=== PATIENT | female | born 1950 | race Caucasian/White ===

== ENCOUNTER → 2018-05-18 | Outpatient (CLI) | payer MEDICARE, OTHER, MEDICAID | LOC: WI 11:17 | PROVIDERS: ATTEND Internal Medicine Geriatric Medicine | DX: Z12.31 Encounter for screening mammogram for malignant neoplasm of breast (principal) | CPT/HCPCS: 77063; 77067 ==

== ENCOUNTER → 2018-11-18 | Outpatient (CLI) | payer MEDICARE, OTHER, MEDICAID ==
--- NOTE | 2018-11-18 11:02 | RADIOLOGY REPORT (SQ) ---
EXAM DESCRIPTION: VENOUS UNILATERAL UPPER COMPLETED DATE/TIME: 11/18/2018 10:43 am REASON FOR STUDY: LUE SWELLING I80.9 PHLEBITIS AND THROMBOPHLEBITIS OF UNSPECIFIED SITE COMPARISON: None. TECHNIQUE: Dynamic and static coffey scale and color images acquired of the left arm venous system. Se lected spectral images acquired with additional compression and augmentation maneuvers. The contralat eral subclavian vein and internal jugular vein were also imaged. Images stored on PACS. LIMITATIONS: None. FINDINGS: INTERNAL JUGULAR VEIN: Normal phasicity, compression, augmentation. No visualized echogeni c material on coffey scale. No defects on color images. Comparison opposite side normal. SUBCLAVIAN VEIN: Normal compression, augmentation. No visualized echogenic material on coffey scale. No defects on color images. AXILLARY VEIN: Normal compression, augmentation. No visualized echogenic material on coffey scale. No d efects on color images. BRACHIAL VEIN: Normal compression, augmentation. No visualized echogenic material on coffey scale. No d efects on color images. BASILIC VEIN: Normal compression, augmentation. No visualized echogenic material on coffey scale. No de fects on color images. CEPHALIC VEIN: Normal compression, augmentation. No visualized echogenic material on coffey scale. No d efects on color images. OTHER: No other significant finding. IMPRESSION: NO EVIDENCE DVT OR SVT IN THE LEFT ARM. TECHNICAL DOCUMENTATION: JOB ID: [id number] [employer]- All Rights Reserved Reading location - IP/workstation name: [email or web address]
== END ==
LOC: RAD 09:51
PROVIDERS: ATTEND Internal Medicine Geriatric Medicine
DX: I80.9 Phlebitis and thrombophlebitis of unspecified site (principal)
CPT/HCPCS: 93971

== ENCOUNTER 2019-11-27 12:29 | Emergency (ER) | payer MEDICARE, OTHER, MEDICAID ==
--- NOTE | 2019-11-27 12:49 | ER Document Report ---
ED Medical Screen (RME) - General Chief Complaint: Leg Pain Stated Complaint: LEG PAIN Time Seen by Provider: 11/27/19 12:46 Primary Care Provider: WINSTON REDDY MD [Primary Care Provider] - Follow up as needed Notes: HPI: 69-year-old female with history of a bleeding varicosity on the right lower leg presenting with bleeding that began yesterday that she has not been able to get to stop. Does not history of high blood pressure. PHYSICAL EXAMINATION: Limited exam in triage, patient has a dressing over the right lower leg this was not unwrapped given her propensity for bleeding, she is bleeding through her dressing at this time. I have greeted and performed a rapid initial assessment of this patient. A comprehensive ED assessment and evaluation of the patient, analysis of test results and completion of medical decision making process will be conducted by an additional ED providers. TRAVEL OUTSIDE OF THE [place] IN LAST 30 DAYS: No - Related Data Allergies/Adverse Reactions: clams Allergy (Uncoded 11/27/19 12:43) Past Medical History Pulmonary Medical History: Reports: Hx Asthma, Hx COPD, Hx Pneumonia Musculoskeltal Medical History: Reports Hx Arthritis - Hips, shoulder, elbow, knees, right ankle Past Surgical History: Reports: Hx Hysterectomy, Hx Orthopedic Surgery - Right ankle, bilateral knees, elbows and shoulders - Immunizations Hx Diphtheria, Pertussis, Tetanus Vaccination: Yes Physical Exam - Vital signs Vitals: Temp Pulse Resp BP Pulse Ox 98.8 F 86 16 146/68 H 99 11/27/19 12:36 11/27/19 12:36 11/27/19 12:36 11/27/19 12:36 11/27/19 12:36 Course - Vital Signs Vital signs: Temp Pulse Resp BP Pulse Ox 98.8 F 86 16 146/68 H 99 11/27/19 12:36 11/27/19 12:36 11/27/19 12:36 11/27/19 12:36 11/27/19 12:36 Doctor's Discharge - Discharge Referrals: WINSTON REDDY MD [Primary Care Provider] - Follow up as needed
[2019-11-27 14:18] LABS: ABSOLUTE BASOPHILS # (AUTO) 0.1 10^3/uL (0.0-0.2); ABSOLUTE EOSINOPHILS # (AUTO) 0.3 10^3/uL (0.0-0.6); ABSOLUTE LYMPHOCYTES (AUTO) 1.8 10^3/uL (0.5-4.7); ABSOLUTE MONOCYTES (AUTO) 0.7 10^3/uL (0.1-1.4); ABSOLUTE NEUT (AUTO) 4.2 10^3/uL (1.7-8.2); EOSINOPHILS % (AUTO) 4.6 % (0-6); HEMOGLOBIN 9.6 g/dL (12.0-15.5); LYMPHOCYTES % (AUTO) 25.9 % (13-45); MEAN CORPUSCULAR HEMOGLOBIN 30.5 pg (27.0-33.4); MEAN CORPUSCULAR HGB CONC 34.4 g/dL (32.0-36.0); MEAN CORPUSCULAR VOLUME 89 fl (80-97); PLATELET COUNT 325 10^3/uL (150-450); RED BLOOD COUNT 3.16 10^6/uL (3.72-5.28); RED CELL DISTRIBUTION WIDTH 14.1 % (11.5-14.0); SEGMENTED NEUTROPHILS % (AUTO) 58.5 % (42-78); TOTAL CELLS COUNTED % (AUTO) 100 %; WHITE BLOOD COUNT 7.1 10^3/uL (4.0-10.5)
[2019-11-27 14:24] LABS: INTERNATIONAL RATION (INR) 0.95; PROTHROMBIN TIME 12.9 SEC (11.4-15.4)
[2019-11-27] MEDS ORDERED: LIDOCAINE 1%/EPINEPHRINE INJ 20 ML VIAL INJ ONE (14:47)
--- NOTE | 2019-11-27 15:14 | ER Document Report ---
ED General - General Chief Complaint: Leg Injury Stated Complaint: LEG PAIN Time Seen by Provider: 11/27/19 12:46 Primary Care Provider: WINSTON REDDY MD [Primary Care Provider] - Follow up as needed Notes: Patient is a 69-year-old white female with a history of varicose veins who presents to the emergency department with a chief complaint of bleeding varicosity that began earlier today. She states this area has bled a few times in the past. She reports that she could not get it to stop bleeding today. Kyra t to an urgent care who wrapped her and referred her here for further care and evaluation. She denies any leg pain, near syncope, dizziness or headache. No chest pain or shortness of breath. No other pain, complaints or concerns at this time. TRAVEL OUTSIDE OF THE [place] IN LAST 30 DAYS: No - Related Data Allergies/Adverse Reactions: clams Allergy (Uncoded 11/27/19 12:43) Past Medical History - Social History Smoking Status: Former Smoker Family History: Reviewed & Not Pertinent Pulmonary Medical History: Reports: Hx Asthma, Hx COPD, Hx Pneumonia Musculoskeletal Medical History: Reports Hx Arthritis - Hips, shoulder, elbow, knees, right ankle Past Surgical History: Reports: Hx Hysterectomy, Hx Orthopedic Surgery - Right ankle, bilateral knees, elbows and shoulders - Immunizations Hx Diphtheria, Pertussis, Tetanus Vaccination: Yes Review of Systems - Review of Systems Constitutional: denies: Fever EENT: denies: Eye pain Cardiovascular: denies: Dizziness Respiratory: denies: Cough Gastrointestinal: denies: Poor appetite Genitourinary: denies: Incontinence Female Genitourinary: denies: Heavy/abnormal periods Musculoskeletal: denies: Neck pain Skin: denies: Change in hair/nails Hematologic/Lymphatic: denies: Easy bleeding Neurological/Psychological: denies: Gait changes Physical Exam - Vital signs Vitals: Temp Pulse Resp BP Pulse Ox 98.8 F 86 16 146/68 H 99 11/27/19 12:36 11/27/19 12:36 11/27/19 12:36 11/27/19 12:36 11/27/19 12:36 - General General appearance: Appears well, Alert In distress: None - Respiratory Respiratory status: No respiratory distress Chest status: Nontender Breath sounds: Normal Chest palpation: Normal - Cardiovascular Rhythm: Regular Heart sounds: Normal auscultation - Neurological Neuro grossly intact: Yes Cognition: Normal Orientation: AAOx4 - Psychological Associated symptoms: Normal affect, Normal mood - Skin Skin Color: Other - Right lateral lower leg proximal to the ankle is a varicosity that is open. Hemostasis is maintained at this time. No tissue injury. Course - Re-evaluation Re-evalutation: 11/27/19 15:11 Patient's skin was prepped and draped in a sterile fashion. 1% lidocaine with epinephrine was infiltrated at the site of a bleeding varicosity. The area was then cauterized with thermal cautery. Complete hemostasis was achieved. Patient tolerated well. The area was dressed with a Surgicel and gauze wrap dressing. Patient with a bleeding varicosity that was cauterized. Hemostasis achieved. She request to be referred to a master lay out specialist for bunion correction. We will refer. Counseled her at length regarding the importance of outpatient follow-up with her regular doctor for reevaluation and with a vascular doctor should these areas persist or become problematic. Advise she return here or any ER immediately with any new, persistent or worsening symptoms. She verbalized understood and agreed. - Vital Signs Vital signs: Temp Pulse Resp BP Pulse Ox 98.8 F 86 16 146/68 H 99 11/27/19 12:36 11/27/19 12:36 11/27/19 12:36 11/27/19 12:36 11/27/19 12:36 - Laboratory Result Diagrams: 11/27/19 13:36 Laboratory results interpreted by me: 11/27/19 13:36 RBC 3.16 L Hgb 9.6 L Hct 28.0 L RDW 14.1 H Discharge - Discharge Clinical Impression: Bleeding from varicose vein Condition: Stable Disposition: HOME, SELF-CARE Instructions: Varicose Veins ([facility]) Additional Instructions: Please follow-up with your regular doctor for reevaluation. You have been referred to podiatry for your foot. Should your varicose veins become more problematic please have your primary doctor refer you to a vascular surgeon or vascular specialist for vein treatment. Please return here or any ER immediately with any new, persistent or worsening symptoms. Referrals: WINSTON REDDY MD [Primary Care Provider] - Follow up as needed SERA MERA DPM [ACTIVE STAFF] - Follow up as needed
[2019-11-27 15:40] VITALS: BP 128/61
== END 2019-11-27 15:40 | disposition home or self-care (01) ==
LOC: ER 12:29
DX: I83.891 Varicose veins of right lower extremity with other complications (principal); J44.9 Chronic obstructive pulmonary disease, unspecified; Z91.013 Allergy to seafood
CPT/HCPCS: 37799; 99283; 36415; 85025; 85610; J3490